=== PATIENT | male | born 1960 ===

== ENCOUNTER 2022-05-26 08:59 | Outpatient (CLI) | payer BC, SELFPAY ==
[2022-05-26 14:53] LABS: Albumin* 4.2 g/dL (3.3-5.0); Chloride* 104 mmol/L (96-114)
[2022-05-26 14:54] LABS: Potassium* 5.9 mmol/L (3.6-5.1); Sodium* 140 mmol/L (135-149)
[2022-05-26 14:56] LABS: Aspartate Amino Transferase* 34 U/L (12-35); Bilirubin Total* 0.6 mg/dL (0.1-1.5); Blood Urea Nitrogen* 17 mg/dL (7-30); Carbon Dioxide* 29 mmol/L (20-32); Cholesterol* 202 mg/dL (90-199); Creatinine* 0.8 mg/dL (0.5-1.5); Estimated Glomerular Filt Rate 99 ml/min; Total Protein* 7.2 g/dL (6.0-8.3)
[2022-05-26 14:57] LABS: Alanine Aminotransferase* 28 U/L (4-50); Alkaline Phosphatase* 77 U/L (40-150); Calcium* 9.2 mg/dL (8.4-10.6); Glucose* 94 mg/dL (60-115); Magnesium* 2.1 mg/dL (1.5-2.6); Triglycerides* 95 mg/dL (40-149)
[2022-05-26 14:58] LABS: HDL Cholesterol* 55 mg/dL (>=40); LDL Cholesterol Calculated 128 mg/dL (<100)
[2022-05-26 15:42] LABS: Vitamin B12* 459 pg/mL (243-894)
== END 2022-05-26 09:00 | disposition home or self-care (01) ==
PROVIDERS: PCP Family Medicine; Visit Provider Family Medicine
DX: M54.40 Lumbago with sciatica, unspecified side (principal); I10 Essential (primary) hypertension; Z13.1 Encounter for screening for diabetes mellitus; Z13.6 Encounter for screening for cardiovascular disorders
CPT/HCPCS: 80053; 80061; 82607; 83735

== ENCOUNTER 2022-06-10 13:00 | Outpatient (CLI) | payer BC, SELFPAY ==
[2022-06-10 13:43] LABS: Chloride* 102 mmol/L (96-114); Potassium* 5.2 mmol/L (3.6-5.1); Sodium* 138 mmol/L (135-149)
[2022-06-10 13:46] LABS: Blood Urea Nitrogen* 18 mg/dL (7-30); Carbon Dioxide* 29 mmol/L (20-32); Creatinine* 0.9 mg/dL (0.5-1.5); Estimated Glomerular Filt Rate 96 ml/min
[2022-06-10 13:47] LABS: Calcium* 9.3 mg/dL (8.4-10.6); Glucose* 93 mg/dL (60-115); Magnesium* 2.2 mg/dL (1.5-2.6)
== END 2022-06-10 13:01 | disposition home or self-care (01) ==
PROVIDERS: PCP Family Medicine; Visit Provider Family Medicine
DX: F33.9 Major depressive disorder, recurrent, unspecified (principal); M54.40 Lumbago with sciatica, unspecified side
CPT/HCPCS: 80048; 83735

== ENCOUNTER 2022-07-31 07:30 | Outpatient (RCR) | payer BC, SELFPAY ==
--- NOTE | 2022-07-30 08:53 | PT.OPDN ---
PT [facility] Daily Note PT [facility] Daily Note Start: 06/04/22 15:43 Freq: Status: Active Protocol: Document 07/29/22 07:40 CJT (Rec: 07/29/22 14:38 CJT [id number]) E-signed By Bart Spain, PT PT OP Daily Progress Note Visit Information Note Type Recert/Progress Note Visit Number 10 Insurance Authorized Visits 100 Physician Authorized Visits eval and treat Insurance Information Recert Due Date 08/07/22 Insurance Name Medicaid,[email or web address] Insurance Information/Comments [employer] - [place] Medicaid Medical Diagnosis M54.5 - LBP with sciatica Treating Diagnosis M54.5 - LBP with sciatica R26.2 - impaired gait Referring MD Morin Subjective Subjective Pt doing well. Has not heard from Dr. Morin's office regarding f/u appointment following his EMG. Pain Comments -10/10 Home Exercise Home Exercise Comments [id number] Objective Other/Pertinent Objective Lumbar ROM Extension - 20 Flexion - 85 R/L Side Bend - 27/27 R/L Rotation - moderate impairments R>L R Hip ROM Flexion - 120 IR/ER - 40/40 L Hip ROM Flexion - 120 IR/ER - 38/40 R knee ROM - WNL L knee ROM - WNL R ankle DF(kf)/DF(ke): (5/-3) L ankle DF(kf)/DF(ke): (5/-1) Upper Abdominals - 4+/5 MMT Lower Abdominals - 3/5 MMT R Hip Strength Flexion - 4/5 MMT Abduction - 4/5 MMT Adduction - 4/5 MMT IR - 5/5 MMT ER - 4/5 MMT L Hip Strength Flexion - 4+/5 MMT Abduction - 4/5 MMT Adduction - 4+/5 MMT IR - 5/5 MMT ER - 4/5 MMT R knee Extension - 5/5 MMT R Knee Flexion - 5/5 MMT L knee Extension - 5/5 MMT L knee Flexion - 5/5 MMT R ankle DF - 4+/5 MMT *pain at top of foot due to neuropathy L ankle DF - 5/5 MMT Pt able to heel and toe walk but with much difficulty and poor balance Palpation: pt reports pain with palpation to R QL; mild tenderness to lumbar paraspinals, L QL and hip mm Gait: antalgic with backward lean; pts L SLR: negative (able to lift leg approx 50-60 degrees before HS tissue tension limits hip flexion B Slump: positive for pain behind knee and in B calves with B testing DARIUSZ: positive for pain in lateral R hip FADIR: positive for LBP on R with R testing Spurling's compression, negative Pelvis: level LLD: 90.0cm/91.5cm (R/L) DTRs: 2+ for B patella, unable to illicit response in B Achilles tendons Patient Instructed in Risks/Benefits Yes Therapeutic Exercise Therapeutic Exercise Minutes (minutes) 40 Therapeutic Exercise: To Restore Treadmill - 10 minutes, 1.2 Functional Status mph, 1.0% incline Back Extension machine 3 x 10, 50# Leg Press 3 x 10, 50# Gastroc stretch on slant board x 90 Sled push/pull 2 x 50 ft, 70# Supine trunk rotations x 10 ea SKTC mobilization x 5 ea DKTC x 60 Curl up with reach 2 x 15 Plank on elbows/knees 3 x 15 Treatment Minutes Untimed Code Treatment Minutes 5 Timed Code Treatment Minutes 40 Total Treatment Time 45 Billing Units Therapeutic Exercise Units 3 Assessment/Impression Assessment/Impression Darien has shown consistent progress in his exercise tolerance and core strength thus far. He continues to have significant weakness in his core that affects his gait and exhibits lack of stability in his spine. His gait appears to be somewhat ataxic although I can't say whether or not this is due to an issue in his cerebellum or simply his weakness. While pts LE strength measures are fair, Darien is not able to ambulate with good quad control in his L LE and relies heavily on his ligaments to support his knee in full extension. We do not yet have images of Darien's spine and I do feel that this is vital to view the degenerative changes as he has significant instability throughout his lumbar region and relies heavily on his ligaments for support with activities including walking, bending, and squatting. We will continue to work on his core and functional strength in therapy and progress his HEP as able. Recommend continued PT services to address deficits and return pt to highest level of function. Plan of Care Physical Therapy Goals STG - To be completed in 2-3 weeks: 1. Pt will report reduction in back pain by factor of 2 so that they may perform all ADLs with tolerable level of pain. 2. Pt will demonstrate ability to perform pelvic tilt with good coordination as indication of appropriate firing of pelvic and lumbar stabilizing muscles to provide greater support for pelvis and lumbar spine. 3. Pt will demonstrate 5/5 MMT for all LE motions without reproduction of pain to provide greater support to pelvis and lumbar spine. 4. 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 LTG - To be completed in 8-12 weeks: 1. Pt to be I with HEP so that they may I manage progression of symptoms. 2. Pt will demonstrate 5/5 MMT for both upper and lower abdominals to provide greater support to pelvis and lumbar spine. 3. Pt will demonstrate negative slump test, SLR, Spurling's compression as indication of reduced pressure on spinal cord and or exiting nerve roots. 4. Pt demo ability to walk 20 minutes without increase in gait abnormalities as indication of reduced neurogenic claudication so that he may walk for exercise. Daily Plan of Care Continue per POC Recertification Information Provider Signature Shows Agreement With POC & Medical Necessity
== END 2022-11-19 23:59 | disposition home or self-care (01) ==
PROVIDERS: PCP Family Medicine; Visit Provider Family Medicine
DX: M54.40 Lumbago with sciatica, unspecified side (principal); R26.9 Unspecified abnormalities of gait and mobility; Z51.89 Encounter for other specified aftercare
CPT/HCPCS: 97110; 97140; 97161

== ENCOUNTER 2023-08-20 14:24 | Outpatient (CLI) | payer BC, SELFPAY | END 2023-08-20 14:25 | disposition home or self-care (01) | LOC: LKVREF 14:26 | PROVIDERS: PCP Family Medicine; Visit Provider Family Medicine | DX: K13.70 Unspecified lesions of oral mucosa (principal) | CPT/HCPCS: 86140 ==

== ENCOUNTER 2023-08-27 08:31 | Outpatient (CLI) | payer BC, SELFPAY ==
--- NOTE | 2023-08-27 09:00 | CT_ITS ---
Patient: SUHAIL RASMUSSEN Facility:?[facility] RIS Patient ID:?[id number] Site Patient ID:?[id number]. Site :?[id number] Study:?CT-ST Neck 106CC ISOVUE 370-08/27/2023 9:33:22 AM Ordering Physician:?DR. HAMILTON Final Report: INDICATION: Enlarged lymph nodes in the neck. Pain to palpation COMPARISON: None. TECHNIQUE: CT soft tissue neck with IV contrast. FINDINGS: Normal bilateral parotid and submandibular glands. Normal thyroid gland. No enlarged cervical lymph nodes bilaterally. No supraclavicular superior mediastinal adenopathy. Nasopharynx and oropharynx are clear. No inflammation within the paravertebral fat pads are Rich ritual space. Calcified tonsilliths. No mass or asymmetry to base of tongue. Normal thickness of the epiglottis. There is asymmetric soft tissue swelling and heterogeneous enhancement of the right lateral oropharyngeal mucosa/submucosa extending inferiorly into the larynx and supraglottic airway. Associated effacement of the right piriform sinus. No evidence of a discrete soft tissue mass. However, between the hyoid bone and thyroid cartilage, there is a loculated fluid collection within the right anterior lateral hypo pharyngeal soft tissues measuring approximately 26 x 7 mm (series 3, image 47; series 5, image 41) with peripheral enhancement and surrounding edema and inflammation. Findings concerning for abscess. There is abnormal fluid collection extends into the super soft tissues anterior lateral to the right thyroid cartilage (series 5, image 44). Other differential considerations include a superinfected thyroglossal duct cyst. Mild mass effect upon the right ventrolateral margin of the supraglottic airway. However, airway remains widely patent. Lung apices are clear. Normal alignment of the cervical spine. No prevertebral soft tissue swelling. Visualized paranasal sinuses and mastoid air cells are clear. IMPRESSION: 1. Asymmetric soft tissue swelling and heterogeneous enhancement of the right lateral oropharynx extending into the hypopharynx and larynx. There is an underlying loculated fluid collection within the anterolateral hypopharyngeal soft tissues concerning for abscess or superinfected thyroglossal duct cyst. 2. No adenopathy. 3. No prevertebral soft tissue swelling. Please note that all CT scans at this facility use dose modulation, iterative reconstruction, and/or weight-based dosing when appropriate to reduce radiation dose to as low as reasonably achievable. Dictated by Allen Simms MD @ 08/27/2023 3:04:01 PM Signed by:?Allen Simms MD @08/27/2023 3:04:01 PM (Electronic Signature)
[2023-08-27 09:01] LABS: Estimated Glomerular Filt Rate 84 ml/min
== END 2023-08-27 08:32 | disposition home or self-care (01) ==
LOC: CT 08:32
PROVIDERS: PCP Family Medicine; Visit Provider Family Medicine
DX: J03.90 Acute tonsillitis, unspecified (principal); R59.0 Localized enlarged lymph nodes
CPT/HCPCS: 36415; 70491; 82565; Q9967

== ENCOUNTER 2024-12-27 08:24 | Outpatient (CLI) | payer BC, SELFPAY | END 2024-12-27 08:25 | disposition home or self-care (01) | LOC: NFLDREF 12-28 15:58 | PROVIDERS: PCP Family Medicine; Visit Provider Family Medicine | DX: Z00.00 Encounter for general adult medical examination without abnormal findings (principal); G62.9 Polyneuropathy, unspecified; R53.83 Other fatigue; Z79.899 Other long term (current) drug therapy; Z13.6 Encounter for screening for cardiovascular disorders; Z12.5 Encounter for screening for malignant neoplasm of prostate | CPT/HCPCS: 80053; 80061; 82607; 84443; G0103 ==

== ENCOUNTER 2025-01-08 13:13 | Outpatient (CLI) | payer BC, SELFPAY ==
--- NOTE | 2025-01-08 13:45 | CRLHL7_ITS ---
For Patients: As a result of the Century Cures Act, medical imaging exams and procedure reports are released immediately into your electronic medical record. You may view this report before your referring provider. If you have questions, please contact your health care provider. INDICATION: Falls. TECHNIQUE: Multisequence multiplanar MRI of the brain without the use of intravenous contrast. COMPARISON: None available. FINDINGS: No evidence of acute ischemia. Scattered foci of T2 prolongation within the white matter of both cerebral hemispheres. Additional FLAIR hyperintensity within the periaqueductal edward matter (series 4 images 20-21) and right superior colliculus (series 4, image 18). The ventricles are normal in size. Flow voids in the larger intracranial arteries are preserved. Bone marrow signal intensity of the calvarium is within normal limits. The globes are symmetric. The paranasal sinuses and mastoid air cells are predominantly clear. IMPRESSION: 1. No evidence of acute ischemia. 2. FLAIR hyperintensity within the periaqueductal edward matter and right superior colliculus. Findings may represent sequela of prior vascular or metabolic insult, but clinical correlation for Wernicke encephalopathy as recommended. 3. Scattered foci of T2 prolongation elsewhere within the supratentorial white matter, nonspecific, but typical of mild chronic small-vessel ischemic changes. Dictated by Ayush Simms MD @ 01/08/2025 3:53:22 PM (Electronically Signed)
== END 2025-01-08 13:14 | disposition home or self-care (01) ==
PROVIDERS: PCP Family Medicine; Visit Provider Family Medicine
DX: R29.6 Repeated falls (principal); I67.82 Cerebral ischemia; R26.81 Unsteadiness on feet
CPT/HCPCS: 70551

== ENCOUNTER 2025-01-22 07:07 | Outpatient (CLI) | payer BC, SELFPAY ==
--- NOTE | 2025-01-22 08:45 | P.ANES_ITS ---
Anesthesia Charges Start Date/Time Anesthesia Start Date: 01/22/25 Anesthesia Start Time: 08:12 Stop Date/Time Anesthesia Stop Date: 01/22/25 Anesthesia Stop Time: 08:43 Coding CPT Codes CPT Codes: JORDAN KUMARI INTST NDSC NOS - 08563 ([id number]) P2 - PATIENT W/MILD SYST DISEASE, QX - CORROSION ENGINEER SVC W/ MD MED DIRECTION, QK - SALES AND OPERATIONS TRAINEE 2-4 CNCRNT ANEIsael PROC
--- NOTE | 2025-01-22 08:45 | W.ANESCHARGE ---
Anesthesia Charges Start Date/Time Anesthesia Start Date: 01/22/25 Anesthesia Start Time: 08:12 Stop Date/Time Anesthesia Stop Date: 01/22/25 Anesthesia Stop Time: 08:43 Coding CPT Codes CPT Codes: JORDAN KUMARI INTST NDSC NOS - 64425 ([id number]) P2 - PATIENT W/MILD SYST DISEASE, QX - ACUTE CARE OCCUPATIONAL THERAPIST SVC W/ MD MED DIRECTION, QK - EDITORIAL WRITER 2-4 CNCRNT ANEIsael PROC
--- NOTE | 2025-01-22 09:06 | P.ANES_ITS ---
Anesthesia Charges Start Date/Time Anesthesia Start Date: 01/22/25 Anesthesia Start Time: 08:12 Stop Date/Time Anesthesia Stop Date: 01/22/25 Anesthesia Stop Time: 08:43 Coding CPT Codes CPT Codes: JORDAN LWR INTST NDSC NOS - 84692 ([id number]) P2 - PATIENT W/MILD SYST DISEASE, QK - PATHOLOGY ASSISTANT 2-4 CNCRNT ANES PROC, QX - LITIGATION ASSOCIATE SVC W/ MD MED DIRECTION
--- NOTE | 2025-01-22 09:06 | W.ANESCHARGE ---
Anesthesia Charges Start Date/Time Anesthesia Start Date: 01/22/25 Anesthesia Start Time: 08:12 Stop Date/Time Anesthesia Stop Date: 01/22/25 Anesthesia Stop Time: 08:43 Coding CPT Codes CPT Codes: JORDAN LWR INTST NDSC NOS - 21643 ([id number]) P2 - PATIENT W/MILD SYST DISEASE, QK - MOBILE SOLUTIONS ARCHITECT 2-4 CNCRNT ANES PROC, QX - ACCOUNT REPRESENTATIVE SVC W/ MD MED DIRECTION
== END 2025-01-22 07:08 | disposition home or self-care (01) ==
LOC: OP CLINIC 07:08
PROVIDERS: PCP Family Medicine; Visit Provider Surgery
DX: Z12.11 Encounter for screening for malignant neoplasm of colon (principal); D12.3 Benign neoplasm of transverse colon; D12.8 Benign neoplasm of rectum; K57.30 Diverticulosis of large intestine without perforation or abscess without bleeding
CPT/HCPCS: 00811; 45385; 88305; J2704

== ENCOUNTER 2025-02-09 06:56 | Outpatient (CLI) | payer BC, SELFPAY ==
--- NOTE | 2025-02-09 07:15 | CRLHL7_ITS ---
For Patients: As a result of the Century Cures Act, medical imaging exams and procedure reports are released immediately into your electronic medical record. You may view this report before your referring provider. If you have questions, please contact your health care provider. INDICATION: elevated liver tests COMPARISON: none TECHNIQUE: Real time edward scale imaging and color Doppler analysis was performed of the right upper quadrant. FINDINGS: The liver echotexture is diffusely increased. Liver measures 17.5 cm. There is a normal appearance of the hepatic IVC and proximal abdominal aorta. There is no evidence of ascites. The gallbladder is of normal size and there is a shadowing stone within the gallbladder lumen which measures 2.3 cm. The gallbladder wall measures 2 mm in thickness. The common bile duct is of normal size and measures 6 mm in diameter at the level of the rivka hepatis. The pancreas is not well evaluated due to overlying bowel gas but might be hyperechoic. The right kidney is not visualized in the right renal fossa. Normal left kidney. IMPRESSION: Hepatomegaly with hepatic steatosis. Cholelithiasis with 2.3 cm stone. No biliary obstruction. Possible fatty pancreas. The right kidney is not visualized within the right renal fossa. No obvious pelvic kidney. Correlate with clinical history. Dictated by Leander Shay MD @ 02/09/2025 10:13:01 AM (Electronically Signed)
== END 2025-02-09 06:57 | disposition home or self-care (01) ==
LOC: US 06:57
PROVIDERS: PCP Family Medicine; Visit Provider Family Medicine
DX: R79.89 Other specified abnormal findings of blood chemistry (principal); R16.0 Hepatomegaly, not elsewhere classified; K76.0 Fatty (change of) liver, not elsewhere classified; K80.20 Calculus of gallbladder without cholecystitis without obstruction
CPT/HCPCS: 76705

== ENCOUNTER 2025-04-03 14:48 | Outpatient (CLI) | payer BC, SELFPAY ==
--- NOTE | 2025-04-03 15:00 | CRLHL7_ITS ---
For Patients: As a result of the Century Cures Act, medical imaging exams and procedure reports are released immediately into your electronic medical record. You may view this report before your referring provider. If you have questions, please contact your health care provider. Indication: ANOREXIA Technique: CT Abdomen/Pelvis 100CC ISOVUE 370 intravenous contrast Please note that all CT scans at this facility use dose modulation, iterative reconstruction, and/or weight-based dosing when appropriate to reduce radiation dose to as low as reasonably achievable. Comparison: Ultrasound 02/09/2025 Findings: Liver is enlarged and measures 18.3 cm. Diffuse low-attenuation of the hepatic parenchyma. Incidental sub cm GE junction lymph nodes noted. No intrahepatic mass. Calcified stone in the gallbladder measures 1.9 cm. No biliary obstruction. Mild atrophy of the pancreas. No pancreatic lesion. Adrenal glands normal. Absent right kidney. Normal left kidney. Atherosclerotic changes. Mild ectasia of the aorta without aneurysm. No enlarged lymph nodes. Bladder normal. Prostate is mildly heterogeneous. Multifocal colonic diverticulosis primarily involving the right colon. No diverticulitis or bowel obstruction. No free air or free fluid. No abscess. Normal appendix. No hernia. Bronchiectatic changes are present in both lung bases with associated mucous plugging and scarring. No pleural effusion. No fracture. Degenerative disc disease L5-S1. Normal spleen. Impression: Hepatomegaly with diffuse hepatic steatosis. Cholelithiasis. Colonic diverticulosis. Bilateral pulmonary bronchiectasis with mucous plugging in both lung bases. Absent right kidney. Normal left kidney. Please note that all CT scans at this facility use dose modulation, iterative reconstruction, and/or weight-based dosing when appropriate to reduce radiation dose to as low as reasonably achievable. Dictated by Leander Shay MD @ 04/04/2025 9:05:11 AM (Electronically Signed)
[2025-04-03 15:17] LABS: Creatinine* 0.8 mg/dL (0.5-1.5); Estimated Glomerular Filt Rate 98 ml/min
== END 2025-04-03 14:49 | disposition home or self-care (01) ==
LOC: CT 14:48
PROVIDERS: PCP Family Medicine; Visit Provider Internal Medicine Gastroenterology
DX: R63.0 Anorexia (principal); R16.0 Hepatomegaly, not elsewhere classified; K76.0 Fatty (change of) liver, not elsewhere classified; K80.20 Calculus of gallbladder without cholecystitis without obstruction; K57.30 Diverticulosis of large intestine without perforation or abscess without bleeding; J47.9 Bronchiectasis, uncomplicated; I70.0 Atherosclerosis of aorta; M51.379 Other intervertebral disc degeneration, lumbosacral region without mention of lumbar back pain or lower extremity pain
CPT/HCPCS: 36415; 74177; 82565; Q9967